=== PATIENT | male | born 1965 ===

== ENCOUNTER 2021-04-11 15:03 | Emergency (ER) | payer SELFPAY ==
--- NOTE | 2021-04-11 15:52 | XRay Report ---
Left hand-3 views INDICATION: cut with glass. COMPARISON: None. IMPRESSION: Soft tissue bandaging is seen about the hand especially along the ulnar aspect which sli ghtly limits evaluation; however, no definite radiopaque foreign body is identified. No acute fractur e. Mild degenerative changes are seen throughout the IP joints and the thumb MCP joint. Signer Name: Shalom Kline MD Signed: 04/11/2021 3:48 PM Workstation Name: [id number]
[2021-04-11] MEDS ORDERED: LIDOCAINE (1%) 10 MG/1 ML VIAL 20 ML MDV INFILTRATI ONE (16:04)
[2021-04-11] MEDS ORDERED: SODIUM CHLORIDE 0.9% IRR 500 ML BOTTLE IR ONE (16:04)
--- NOTE | 2021-04-11 16:57 | Emergency Department Report ---
- General Chief Complaint: Laceration/Recheck/Suture Stated Complaint: LT HAND CUT Time Seen by Provider: 04/11/21 15:34 Source: patient Mode of arrival: Ambulatory Limitations: No Limitations - History of Present Illness Initial Comments: Patient is a 55-year-old male with c/o laceration to the left hand that occurred just prior to arrival. Patient states that he was moving some boxes and accidentally cut himself on a glass table. He states initially there was bleeding but it improved upon placing gauze dressing. He denies any numbness or weakness and is able to move the hand completely. Past medical history of hep C. No allergies to medications. - Related Data Allergies Allergy/AdvReac Type Severity Reaction Status Date / Time No Known Allergies Allergy Unverified 04/11/21 15:09 ED Review of Systems ROS: Stated complaint: LT HAND CUT Other details as noted in HPI Comment: All other systems reviewed and negative ED Past Medical Hx - Past Medical History Previous Medical History?: Yes Additional medical history: Hep C - Surgical History Past Surgical History?: No ED Physical Exam - General Limitations: No Limitations General appearance: alert, in no apparent distress - Head Head exam: Present: atraumatic, normocephalic - Eye Eye exam: Present: normal appearance - ENT ENT exam: Present: mucous membranes moist - Neurological Exam Neurological exam: Present: alert, oriented X3 - Psychiatric Psychiatric exam: Present: normal affect, normal mood - Skin Skin exam: Present: warm, dry, other (3 cm irregular laceration present to the left dorsal hand, no active bleeding, no foreign body, no muscle/tendon involvement, FROM of the left hand and digits, neurovascularly intact) ED Course Vital Signs 04/11/21 04/11/21 15:13 15:14 Temperature 98.1 F 98.1 F Pulse Rate 97 H Respiratory 18 18 Rate Blood Pressure 151/86 O2 Sat by Pulse 100 Oximetry - Laceration /Wound Repair Left Dorsal Hand Wound Location: upper extremity (left dorsal hand) Wound Length (cm): 3 Wound's Depth, Shape: superficial Wound Explored: clean Irrigated w/ Saline (ccs): 200 Betadine Prep?: Yes Anesthesia: 1% Lidocaine Volume Anesthetic (ccs): 4 Wound Debrided: moderate Wound Repaired With: sutures Suture Size/Type: 4:0, proline Number of Sutures: 6 Layer Closure?: No Sterile Dressing Applied?: Yes Progress: Verbal consent obtained by patient Wound irrigated with saline and thoroughly scrubbed with Betadine, no foreign bodies identified, no muscle or tendon involvement, 4 cc of 1% lidocaine with epinephrine used anesthetic, Betadine prep again, sterile drapes applied, sterile gloves worn, 4-0 Prolene used for skin closure, 6 sutures placed, patient tolerated well, no complications, bleeding controlled ED Medical Decision Making - Radiology Data Radiology results: report reviewed Ordering Physician: AUTUMN SIMPSON Date of Service: 04/11/21 Procedure(s): XR hand 3+V LT Accession Number(s): [id number] cc: AUTUMN SIMPSON Fluoro Time In Minutes: Left hand-3 views INDICATION: cut with glass. COMPARISON: None. IMPRESSION: Soft tissue bandaging is seen about the hand especially along the ulnar aspect which slightly limits evaluation; however, no definite radiopaque foreign body is identified. No acute fracture. Mild degenerative changes are seen throughout the IP joints and the thumb MCP joint. Signer Name: Shalom Kline MD Signed: 04/11/2021 3:48 PM Workstation Name: [id number] Transcribed By: JAH Dictated By: Shalom Kline MD Electronically Authenticated By: Shalom Kline MD Signed Date/Time: 04/11/21 1548 DD/ 45 TD/TT: - Medical Decision Making Patient is a 55-year-old male with c/o laceration to the left hand that occurred just prior to arrival. Patient states that he was moving some boxes and accidentally cut himself on a glass table. He states initially there was bleeding but it improved upon placing gauze dressing. He denies any numbness or weakness and is able to move the hand completely. Past medical history of hep C. No allergies to medications. Vitals are stable. On exam:3 cm irregular laceration present to the left dorsal hand, no active bleeding, no foreign body, no muscle/tendon involvement, FROM of the left hand and digits, neurovascularly intact. Patient states his tetanus immunization was 3 years ago. X-ray left hand: Soft tissue bandaging is seen about the hand especially along the ulnar aspect which slightly limits evaluation; however, no definite radiopaque foreign body is identified. No acute fracture. Mild degenerative changes are seen throughout the IP joints and the thumb MCP joint. Thoroughly irrigated with saline and scrubbed with Betadine and repaired per procedure note without any complications. Bleeding was entirely controlled after procedure. Upon discharge, patient began using wipes to wipe his hand and hit his hand and had some bleeding, gauze was placed and bleeding resolved and then nurse placed a new sterile dressing. Advised patient Please keep area clean, dry, covered. Wash with antibacterial soap and water pat dry. No hot tub, no pool. Sutures need to be removed in 10 to 14 days, may return to the emergency room or urgent care for removal. Follow-up with a primary care doctor for reexamination. Return to emergency room for any new or worsening symptoms. Critical care attestation.: If time is entered above; I have spent that time in minutes in the direct care of this critically ill patient, excluding procedure time. ED Disposition Clinical Impression: Laceration of left hand Qualifiers: Encounter type: initial encounter Foreign body presence: without foreign body Qualified Code(s): S61.412A - Laceration without foreign body of left hand, initial encounter Disposition: 01 HOME / SELF CARE / HOMELESS Is pt being admited?: No Does the pt Need Aspirin: No Condition: Stable Instructions: Laceration Care, Adult, [id number] Additional Instructions: Please keep area clean, dry, covered. Wash with antibacterial soap and water pat dry. No hot tub, no pool. Sutures need to be removed in 10 to 14 days, may return to the emergency room or urgent care for removal. Follow-up with a primary care doctor for reexamination. Return to emergency room for any new or worsening symptoms. Referrals: your, primary care doctor [Other] - 3-5 Days Time of Disposition: 17:00 Print Language: DANISH
[2021-04-11 18:00] VITALS: BP 151/86
== END 2021-04-11 18:07 | disposition home or self-care (01) ==
LOC: ED 15:03
DX: S61.412A Laceration without foreign body of left hand, initial encounter (principal); Z98.890 Other specified postprocedural states; W25.XXXA Contact with sharp glass, initial encounter; Y93.89 Activity, other specified; Y92.89 Other specified places as the place of occurrence of the external cause; Y99.8 Other external cause status
CPT/HCPCS: 99283